=== PATIENT | male | born 1955 | race American Indian/Alaskan Native ===

== ENCOUNTER 2017-06-21 13:01 | Emergency (ER) | payer SELFPAY ==
--- NOTE | 2017-06-21 13:20 | Emergency Department Report ---
Chief Complaint: Abdominal Pain Stated Complaint: STOMACH ACHE - HPI History of Present Illness: Pt c/o abd pain x 1 week. PT states the pain started after eating food. PT states he can not eat or drink now - ROS Review of Systems: + abd pain + n/v + recent UTI - Exam Physical Exam: pt is alert and appropriate abd is soft. pt c/o upper abd pain MSE screening note: Focused history and physical exam performed. Due to findings the following was ordered: labs ED Disposition for MSE Condition: Stable
[2017-06-21 13:45] LABS: Basophils % (Auto) 0.4 % (0.0-1.8); Eosinophils % (Auto) 0.1 % (0.0-4.3); Hematocrit 42.2 % (35.5-45.6); Hemoglobin 13.8 gm/dl (11.8-15.2); Mean Corpuscular HGB Conc 33 % (32-34); Mean Corpuscular Hemoglobin 28 pg (28-32); Mean Corpuscular Volume 86 fl (84-94); Platelet Count 335 K/mm3 (140-440); Red Blood Count 4.91 M/mm3 (3.65-5.03); Red Cell Distribution Width 13.5 % (13.2-15.2); White Blood Count 7.6 K/mm3 (4.5-11.0)
[2017-06-21 14:06] LABS: Alanine Aminotransferase 15 units/L (7-56); Albumin 4.8 g/dL (3.9-5); Albumin/Globulin Ratio 1.5 %; Alkaline Phosphatase 42 units/L (35-129); Anion Gap 22 mmol/L; BUN/Creatinine Ratio 15.45; Blood Urea Nitrogen 17 mg/dL (9-20); Calcium 9.6 mg/dL (8.4-10.2); Carbon Dioxide 25 mmol/L (22-30); Chloride 91.1 mmol/L (98-107); Glucose 113 mg/dL (75-100); Potassium 3.7 mmol/L (3.6-5.0); Sodium 134 mmol/L (137-145)
[2017-06-21 14:24] LABS: Bilirubin,Urine NEG (Negative); Blood,Urine NEG (Negative); Ketones,Urine NEG (Negative); Leukocyte Esterase,Urine SM (Negative); Mucus,Urine FEW /HPF; Nitrite,Urine NEG (Negative); Urobilinogen,Urine < 2.0 mg/dL (<2.0)
[2017-06-21] MEDS ORDERED: ZOFRAN ONE (19:43)
[2017-06-21] MEDS ORDERED: NACL 0.9% 1000 ML 1,000 ML ONE (19:43)
[2017-06-21] MEDS ORDERED: SUBLIMAZE ONE (19:44)
[2017-06-21] MEDS: NACL 0.9% 1000 ML 1,000 ML IV SCH ×2 (20:00→22:50)
[2017-06-21] MEDS ORDERED: SUBLIMAZE IV ONE (21:00)
[2017-06-21] MEDS ORDERED: ZOFRAN ODT PO ONE (21:00)
[2017-06-21] MEDS ORDERED: PHENERGAN PO ONE (21:00)
[2017-06-21] MEDS ORDERED: ROCEPHIN/NS 1 GM/50 ML 1 GM/50 ML BAG IV ONE (21:24)
--- NOTE | 2017-06-21 21:25 | Emergency Department Report ---
ED General Adult HPI - General Chief complaint: Abdominal Pain Stated complaint: STOMACH ACHE Time Seen by Provider: 06/21/17 21:19 Source: patient Mode of arrival: Ambulatory Limitations: No Limitations - History of Present Illness Initial comments: Patient is a 61-year-old male past medical history of GERD who presents with upset stomach. Patient states for the last couple months he's been having nausea and vomiting. He states that he can't keep anything down. He states his abdominal pain is located in the epigastric area is now 10 months of burning pain doesn't radiate eating certain foods makes it worse nothing makes it better. Patient denies having any fever. - Related Data Previous Rx's Medication Instructions Recorded Last Taken Type Magnesium Citrate [Citrate of 296 ml PO ONCE #1 solution 06/21/17 Unknown Rx Magnesia] Promethazine [Phenergan TAB] 25 mg PO Q8HR PRN #30 tab 06/21/17 Unknown Rx Sulfamethoxazole/Trimethoprim 1 tab PO BID #10 tab 06/21/17 Unknown Rx [Bactrim 400-80 mg] Allergies Allergy/AdvReac Type Severity Reaction Status Date / Time No Known Allergies Allergy Unverified 06/21/17 13:16 ED Review of Systems ROS: Stated complaint: STOMACH ACHE Other details as noted in HPI Constitutional: denies: chills, fever Eyes: denies: eye pain, eye discharge, vision change ENT: denies: ear pain, throat pain Respiratory: denies: cough, shortness of breath, wheezing Cardiovascular: denies: chest pain, palpitations Endocrine: no symptoms reported Gastrointestinal: abdominal pain, nausea, vomiting. denies: diarrhea Genitourinary: denies: urgency, dysuria Musculoskeletal: denies: back pain, joint swelling, arthralgia Skin: denies: rash, lesions Neurological: denies: headache, weakness, paresthesias Psychiatric: denies: anxiety, depression Hematological/Lymphatic: denies: easy bleeding, easy bruising ED Past Medical Hx - Past Medical History Previous Medical History?: Yes Hx GERD: Yes Additional medical history: UTI, N/V - Surgical History Past Surgical History?: No - Social History Smoking Status: Never Smoker Substance Use Type: Alcohol, Prescribed - Medications Home Medications: Home Medications Medication Instructions Recorded Confirmed Last Taken Type Magnesium Citrate [Citrate of 296 ml PO ONCE #1 solution 06/21/17 Unknown Rx Magnesia] Promethazine [Phenergan TAB] 25 mg PO Q8HR PRN #30 tab 06/21/17 Unknown Rx Sulfamethoxazole/Trimethoprim 1 tab PO BID #10 tab 06/21/17 Unknown Rx [Bactrim 400-80 mg] ED Physical Exam - General Limitations: No Limitations General appearance: alert, in no apparent distress - Head Head exam: Present: atraumatic, normocephalic - Eye Eye exam: Present: normal appearance - ENT ENT exam: Present: mucous membranes moist - Neck Neck exam: Present: normal inspection - Respiratory Respiratory exam: Present: normal lung sounds bilaterally. Absent: respiratory distress - Cardiovascular Cardiovascular Exam: Present: regular rate, normal rhythm. Absent: systolic murmur, diastolic murmur, rubs, gallop - GI/Abdominal GI/Abdominal exam: Present: soft, normal bowel sounds - Rectal Rectal exam: Present: deferred - Extremities Exam Extremities exam: Present: normal inspection - Back Exam Back exam: Present: normal inspection - Neurological Exam Neurological exam: Present: alert, oriented X3 - Psychiatric Psychiatric exam: Present: normal affect, normal mood - Skin Skin exam: Present: warm, dry, intact, normal color. Absent: rash ED Course Vital Signs 06/21/17 06/21/17 06/21/17 13:16 17:19 17:30 Temperature 98.1 F Pulse Rate 89 Respiratory 18 Rate Blood Pressure 111/54 138/89 141/98 Blood Pressure [Left] O2 Sat by Pulse 100 99 Oximetry 06/21/17 06/21/17 06/21/17 17:45 18:00 18:15 Temperature Pulse Rate Respiratory Rate Blood Pressure 138/89 144/93 144/93 Blood Pressure [Left] O2 Sat by Pulse 100 100 98 Oximetry 06/21/17 06/21/17 06/21/17 18:30 18:45 19:01 Temperature Pulse Rate Respiratory Rate Blood Pressure 106/69 106/69 106/69 Blood Pressure [Left] O2 Sat by Pulse 100 100 100 Oximetry 06/21/17 06/21/17 06/21/17 19:15 19:31 19:45 Temperature Pulse Rate Respiratory Rate Blood Pressure 106/69 134/89 134/89 Blood Pressure [Left] O2 Sat by Pulse 100 100 100 Oximetry 06/21/17 06/21/17 06/21/17 20:00 20:15 20:30 Temperature 98.7 F Pulse Rate 80 Respiratory 16 16 Rate Blood Pressure 128/78 128/78 Blood Pressure 114/90 [Left] O2 Sat by Pulse 100 100 Oximetry 06/21/17 06/21/17 06/21/17 20:31 20:45 21:00 Temperature Pulse Rate Respiratory Rate Blood Pressure 146/95 146/95 142/93 Blood Pressure [Left] O2 Sat by Pulse 100 96 96 Oximetry 06/21/17 06/21/17 06/21/17 21:15 21:30 21:45 Temperature Pulse Rate Respiratory Rate Blood Pressure 142/93 129/93 129/93 Blood Pressure [Left] O2 Sat by Pulse 100 100 99 Oximetry 06/21/17 06/21/17 06/21/17 22:00 22:15 22:30 Temperature Pulse Rate Respiratory Rate Blood Pressure 111/75 111/75 111/75 Blood Pressure [Left] O2 Sat by Pulse 100 96 100 Oximetry 06/21/17 06/21/17 06/21/17 22:45 23:01 23:15 Temperature Pulse Rate Respiratory Rate Blood Pressure 111/75 138/85 138/85 Blood Pressure [Left] O2 Sat by Pulse 100 100 100 Oximetry 06/21/17 06/21/17 06/22/17 23:30 23:45 00:00 Temperature Pulse Rate Respiratory Rate Blood Pressure 106/68 106/68 101/74 Blood Pressure [Left] O2 Sat by Pulse 100 100 Oximetry ED Medical Decision Making - Lab Data Result diagrams: 06/21/17 13:28 06/21/17 13:28 Lab Results 06/21/17 06/21/17 06/21/17 Range/Units 13:28 13:28 13:28 WBC 7.6 (4.5-11.0) K/mm3 RBC 4.91 (3.65-5.03) M/mm3 Hgb 13.8 (11.8-15.2) gm/dl Hct 42.2 (35.5-45.6) % MCV 86 (84-94) fl MCH 28 (28-32) pg MCHC 33 (32-34) % RDW 13.5 (13.2-15.2) % Plt Count 335 (140-440) K/mm3 Lymph % (Auto) 20.7 (13.4-35.0) % [place] % (Auto) 6.5 (0.0-7.3) % Eos % (Auto) 0.1 (0.0-4.3) % Baso % (Auto) 0.4 (0.0-1.8) % Lymph # 1.6 (1.2-5.4) K/mm3 [place] # 0.5 (0.0-0.8) K/mm3 Eos # 0.0 (0.0-0.4) K/mm3 Baso # 0.0 (0.0-0.1) K/mm3 Seg Neutrophils % 72.3 H (40.0-70.0) % Seg Neutrophils # 5.5 (1.8-7.7) K/mm3 Sodium 134 L (137-145) mmol/L Potassium 3.7 (3.6-5.0) mmol/L Chloride 91.1 L (98-107) mmol/L Carbon Dioxide 25 (22-30) mmol/L Anion Gap 22 mmol/L BUN 17 (9-20) mg/dL Creatinine 1.1 (0.8-1.5) mg/dL Estimated GFR > 60 ml/min BUN/Creatinine Ratio 15.45 % Glucose 113 H (75-100) mg/dL Calcium 9.6 (8.4-10.2) mg/dL Total Bilirubin 1.30 H (0.1-1.2) mg/dL AST 22 (5-40) units/L ALT 15 (7-56) units/L Alkaline Phosphatase 42 (35-129) units/L Total Protein 8.0 (6.3-8.2) g/dL Albumin 4.8 (3.9-5) g/dL Albumin/Globulin Ratio 1.5 % Lipase 36 (13-60) units/L Urine Color (Yellow) Urine Turbidity (Clear) Urine pH (5.0-7.0) Ur Specific [place] (1.003-1.030) Urine Protein (Negative) mg/dL Urine Glucose (UA) (Negative) mg/dL Urine Ketones (Negative) mg/dL Urine Blood (Negative) Urine Nitrite (Negative) Urine Bilirubin (Negative) Urine Urobilinogen (<2.0) mg/dL Ur Leukocyte Esterase (Negative) Urine WBC (Auto) (0.0-6.0) /HPF Urine RBC (Auto) (0.0-6.0) /HPF U Epithel Cells (Auto) (0-13.0) /HPF Urine Mucus /HPF 06/21/17 Range/Units 13:29 WBC (4.5-11.0) K/mm3 RBC (3.65-5.03) M/mm3 Hgb (11.8-15.2) gm/dl Hct (35.5-45.6) % MCV (84-94) fl MCH (28-32) pg MCHC (32-34) % RDW (13.2-15.2) % Plt Count (140-440) K/mm3 Lymph % (Auto) (13.4-35.0) % [place] % (Auto) (0.0-7.3) % Eos % (Auto) (0.0-4.3) % Baso % (Auto) (0.0-1.8) % Lymph # (1.2-5.4) K/mm3 [place] # (0.0-0.8) K/mm3 Eos # (0.0-0.4) K/mm3 Baso # (0.0-0.1) K/mm3 Seg Neutrophils % (40.0-70.0) % Seg Neutrophils # (1.8-7.7) K/mm3 Sodium (137-145) mmol/L Potassium (3.6-5.0) mmol/L Chloride (98-107) mmol/L Carbon Dioxide (22-30) mmol/L Anion Gap mmol/L BUN (9-20) mg/dL Creatinine (0.8-1.5) mg/dL Estimated GFR ml/min BUN/Creatinine Ratio % Glucose (75-100) mg/dL Calcium (8.4-10.2) mg/dL Total Bilirubin (0.1-1.2) mg/dL AST (5-40) units/L ALT (7-56) units/L Alkaline Phosphatase (35-129) units/L Total Protein (6.3-8.2) g/dL Albumin (3.9-5) g/dL Albumin/Globulin Ratio % Lipase (13-60) units/L Urine Color Yellow (Yellow) Urine Turbidity Clear (Clear) Urine pH 6.0 (5.0-7.0) Ur Specific [place] 1.018 (1.003-1.030) Urine Protein 30 mg/dl (Negative) mg/dL Urine Glucose (UA) Neg (Negative) mg/dL Urine Ketones Neg (Negative) mg/dL Urine Blood Neg (Negative) Urine Nitrite Neg (Negative) Urine Bilirubin Neg (Negative) Urine Urobilinogen < 2.0 (<2.0) mg/dL Ur Leukocyte Esterase Sm (Negative) Urine WBC (Auto) 9.0 H (0.0-6.0) /HPF Urine RBC (Auto) 4.0 (0.0-6.0) /HPF U Epithel Cells (Auto) 2.0 (0-13.0) /HPF Urine Mucus Few /HPF - Medical Decision Making Chief medical diagnosis: GERD Differential medical diagnosis: Gastritis, pancreatitis, hypokalemia, I will give patient IV antiemetics, IV fluids and IV Rocephin, urinalysis Critical care attestation.: If time is entered above; I have spent that time in minutes in the direct care of this critically ill patient, excluding procedure time. ED Disposition Clinical Impression: GERD (gastroesophageal reflux disease) Qualifiers: Esophagitis presence: without esophagitis Qualified Code(s): K21.9 - Gastro- esophageal reflux disease without esophagitis UTI (urinary tract infection) Qualifiers: Urinary tract infection type: acute cystitis Hematuria presence: without hematuria Qualified Code(s): N30.00 - Acute cystitis without hematuria Nausea and vomiting Qualifiers: Vomiting type: unspecified Vomiting Intractability: unspecified Qualified Code( s): R11.2 - Nausea with vomiting, unspecified Disposition: DC- TO HOME OR SELFCARE Is pt being admited?: No Condition: Stable Instructions: Urinary Tract Infection in Men (ED), Diet for Ulcers and Gastritis (ED), Gastroesophageal Reflux Disease (ED) Prescriptions: Magnesium Citrate [Citrate of Magnesia] 296 ml PO ONCE #1 solution Promethazine [Phenergan TAB] 25 mg PO Q8HR PRN #30 tab PRN Reason: Nausea Sulfamethoxazole/Trimethoprim [Bactrim 400-80 mg] 1 tab PO BID #10 tab Referrals: PRIMARY CARE, [Primary Care Provider] - 3-5 Days
[2017-06-21] MEDS ORDERED: PEPCID IV ONE (21:27)
[2017-06-21] MEDS ORDERED: REGLAN IV ONE (22:26)
[2017-06-22 00:09] VITALS: BP 114/90
--- NOTE | 2017-06-22 08:17 | XRay Report ---
CHEST TWO VIEWS: 06/21/17 22:32 CLINICAL: Chest pain. COMPARISON: None FINDINGS: Normal heart and pulmonary vasculature. The lungs are normally expanded and clear.Dextroscoliosis. IMPRESSION: No acute cardiopulmonary process.
== END 2017-06-22 01:28 | disposition home or self-care (01) ==
LOC: ED 13:01
DX: K21.9 Gastro-esophageal reflux disease without esophagitis (principal); N39.0 Urinary tract infection, site not specified
CPT/HCPCS: 36415; 71020; 80053; 81001; 83690; 85025; 96365; 96366; 96375; 99284; J0696; J2405; J2765; J3010; J7030; Q0169